=== PATIENT | female | born 1970 | race Caucasian/White ===

== ENCOUNTER 2017-03-20 16:33 | Emergency (ER) | payer OTHER ==
[~2017-03-20] VITALS: Ht 160 cm; Wt 65.5 kg
[~2017-03-20 16:33] MED LIST: ACET325T33 PO; DICY10SY PO; HYDR-2458 PO; NITR-58 PO; ZOF8 PO
[2017-03-20 16:35] VITALS: Ht 160 cm; Wt 65.5 kg
[2017-03-20] MEDS ORDERED: ONDANSETRON (ODT) 4 MG TAB ODT STA (19:25)
[2017-03-20] MEDS ORDERED: HYDROCODONE/APAP (5/325) TAB PO ONE (19:30)
[2017-03-20 19:45] LABS: ADD SCAN DIFF NO
[2017-03-20 19:47] LABS: BASOPHILS % 0.2 % (0.0-2.0); HEMATOCRIT 35.8 % (37.0-47.0); HEMOGLOBIN 12.4 g/dl (12.0-16.0); LYMPHOCYTES # 0.6 10^3/ul (0.8-2.9); LYMPHOCYTES % 9.9 % (15.0-51.0); MEAN CORPUSCULAR HEMOGLOBIN 30.8 pg (29.0-33.0); MEAN CORPUSCULAR HGB CONC 34.6 g/dl (32.0-37.0); MEAN CORPUSCULAR VOLUME 88.8 fl (82.0-101.0); MEAN PLATELET VOLUME 9.1 fl (7.4-10.4); MONOCYTE # 0.2 10^3/ul (0.3-0.9); NEUTROPHIL # 5.4 10^3/ul (1.6-7.5); NEUTROPHILS % 86.6 % (39.0-77.0); PLATELET COUNT 216 10^3/UL (140-415); RED BLOOD COUNT 4.03 10^6/ul (4.20-5.40); RED CELL DISTRIBUTION WIDTH 12.2 % (11.5-14.5); WHITE BLOOD COUNT 6.3 10^3/ul (4.8-10.8)
[2017-03-20 19:52] LABS: ADD UMIC YES; URINE BILIRUBIN (Dip) NEGATIVE (NEGATIVE); URINE BLOOD (Dip) TRACE (NEGATIVE); URINE COLOR YELLOW (YELLOW); URINE GLUCOSE (Dip) NEGATIVE (NEGATIVE); URINE KETONES (Dip) 40 (NEGATIVE); URINE LEUKOCYTE ESTERASE (Dip) NEGATIVE (NEGATIVE); URINE NITRITE (Dip) NEGATIVE (NEGATIVE); URINE TOTAL PROTEIN (Dip) NEGATIVE (NEGATIVE); URINE UROBILINOGEN (Dip) 0.2 E.U./dL (0.1-1.0)
[2017-03-20 20:04] LABS: ALBUMIN 4.8 g/dl (3.3-4.9); ALBUMIN/GLOBULIN RATIO 1.23; BILIRUBIN,INDIRECT 0.7 mg/dl (0-1.1); BILIRUBIN,TOTAL 0.7 mg/dl (0.2-1.3); CALCIUM 8.9 mg/dl (8.4-10.2); CREATININE 0.62 mg/dl (0.44-1.00); POTASSIUM 3.5 mmol/L (3.5-5.1); TOTAL PROTEIN 8.7 g/dl (6.1-8.1)
[2017-03-20 20:15] LABS: BACTERIA,URINE FEW; SQUAMOUS EPITHELIAL CELL,UR FEW
[2017-03-20] MEDS ORDERED: HYDR-906 PO (20:21)
[2017-03-20] MEDS ORDERED: DOCU-144 PO (20:21)
[2017-03-20] MEDS ORDERED: ONDA4TAB8 PO (20:21)
[2017-03-20] MEDS ORDERED: FAMO-18 PO (20:22)
--- NOTE | 2017-03-20 20:26 | ERD ---
ER Documentation Chief Complaint Date/Time DATE: 03/20/17 TIME: 20:23 Chief Complaint AP SINCE LAST NIGHT WITH NAUSEA HPI This 46-year-old female who presents to the emergency department today complaining of abdominal pain since last night. States she has had some nausea and one bout of vomiting. States she has a history of gastritis. States he has not taken any medication for the pain. Denies any dysuria, fevers or chills. ROS All systems reviewed and are negative except as per history of present illness. Medications Home Meds Active Scripts Famotidine* (Pepcid*) 20 Mg Tablet, 20 MG PO BID for 10 Days, TAB Prov:YANIRA ASHBY PA-C 03/20/17 Docusate Sodium* (Colace*) 100 Mg Capsule, 100 MG PO TID, #30 CAP Prov:YANIRA ASHBY PA-C 03/20/17 Ondansetron Hcl* (Zofran*) 4 Mg Tablet, 4 MG PO Q6H for NAUSEA AND/OR VOMITING, #30 TAB Prov:YANIRA ASHBY PA-C 03/20/17 Hydrocodone/Acetaminophen (Aurora 5-325 Tablet) 1 Each Tablet, 1 TAB PO Q6H Y for PAIN, #12 TAB Prov:YANIRA ASHBY PA-C 03/20/17 Acetaminophen* (Tylenol*) 325 Mg Tablet, 2 TAB PO Q8 Y for PAIN AND OR ELEVATED TEMP, #20 TAB Prov:GARY AYALA PA-C 10/31/15 Nitrofurantoin Monohyd Macrocr* (Macrobid*) 100 Mg Capsr, 100 MG PO BID for 7 Days, CAP Prov:GARY AYALA PA-C 10/31/15 Reported Medications Ondansetron Hcl* (Zofran* ODT) 8 Mg/Tab Tab.rapdis, 8 MG PO 07/31/13 Dicyclomine Hcl (Dicyclomine Hcl) 10 Mg/5 Ml Syrup, 10 MG PO, #2 07/31/13 Hydrocodone Bit-Acetaminophen (Hydrocodone Bit-Acetaminophen) 1 Each Tablet, 1 EACH PO 07/31/13 Allergies Allergies: Coded Allergies: No Known Allergy (Unverified , 07/21/13) PMhx/Soc History of Surgery: Yes (C SECTION) Anesthesia Reaction: No Hx Neurological Disorder: No Hx Respiratory Disorders: No Hx Cardiac Disorders: No Hx Psychiatric Problems: No Hx Miscellaneous Medical Probl: Yes (GASTRITIS, HERNIA) Hx Alcohol Use: No Hx Substance Use: No Hx Tobacco Use: No Smoking Status: Never smoker Physical Exam Vitals Vital Signs Date Time Temp Pulse Resp B/P Pulse Ox O2 Delivery O2 Flow Rate FiO2 03/20/17 16:35 99.2 110 20 122/61 99 Physical Exam Const: No acute distress Head: Atraumatic Eyes: Normal Conjunctiva ENT: Normal External Ears, Nose and Mouth. Neck: Full range of motion..~ No meningismus. Resp: Clear to auscultation bilaterally Cardio: Regular rate and rhythm, no murmurs Abd: Soft, periumbilical tenderness, non distended. Normal bowel sounds. No right lower quadrant pain. No tenderness McBurney's. No pelvic pain. Skin: No petechiae or rashes Neur: Awake and alert Psych: Normal Mood and Affect Result Diagram: 03/20/17193103/20/171931 Results 24 hrs Laboratory Tests Test 03/20/17 19:27 03/20/17 19:32 Urine Color YELLOW Urine Clarity CLEAR Urine pH 5.5 Urine Specific [place] >=1.030 Urine Ketones 40 Urine Nitrite NEGATIVE Urine Bilirubin NEGATIVE Urine Urobilinogen 0.2 E.U./dL Urine Leukocyte Esterase NEGATIVE Urine Microscopic RBC 2-5/HPF Urine Microscopic WBC 0-2/HPF Urine Squamous Epithelial Cells FEW Urine Bacteria FEW Urine Hemoglobin TRACE Urine Glucose NEGATIVE% Urine Total Protein NEGATIVE White Blood Count 6.310^3/ul Red Blood Count 4.0310^6/ul Hemoglobin 12.4g/dl Hematocrit 35.8% Mean Corpuscular Volume 88.8fl Mean Corpuscular Hemoglobin 30.8pg Mean Corpuscular Hemoglobin Concent 34.6g/dl Red Cell Distribution Width 12.2% Platelet Count 67019^3/UL Mean Platelet Volume 9.1fl Neutrophils % 86.6% Lymphocytes % 9.9% Monocytes % 3.0% Eosinophils % 0.0% Basophils % 0.2% Nucleated Red Blood Cells % 0.0/100WBC Neutrophils # 5.410^3/ul Lymphocytes # 0.610^3/ul Monocytes # 0.210^3/ul Eosinophils # 0.010^3/ul Basophils # 0.010^3/ul Nucleated Red Blood Cells # 0.010^3/ul Sodium Level 137mmol/L Potassium Level 3.5mmol/L Chloride Level 104mmol/L Carbon Dioxide Level 23mmol/L Anion Gap 14 Blood Urea Nitrogen 11mg/dl Creatinine 0.62mg/dl Glucose Level 104mg/dl Calcium Level 8.9mg/dl Total Bilirubin 0.7mg/dl Direct Bilirubin 0.00mg/dl Indirect Bilirubin 0.7mg/dl Aspartate Amino Transf (AST/SGOT) 33IU/L Alanine Aminotransferase (ALT/SGPT) 35IU/L Alkaline Phosphatase 78IU/L Total Protein 8.7g/dl Albumin 4.8g/dl Globulin 3.90g/dl Albumin/Globulin Ratio 1.23 Lipase 52U/L Current Medications Medications (Trade) Dose Ordered Sig/Ev Route PRN Reason Start Time Stop Time Status Last Admin Dose Admin Acetaminophen/ Hydrocodone Bitart (Aurora (5/325)) 1 tab ONCE ONCE PO 03/20/17 19:30 03/20/17 19:31 DC 03/20/17 19:42 Ondansetron HCl (Zofran Odt) 4 mg ONCE STAT ODT 03/20/17 19:25 03/20/17 19:27 DC 03/20/17 19:42 Procedures/MDM This 46-year-old female presents to the emergency department today complaining of abdominal pain that started last night. On physical exam patient only had periumbilical tenderness. She had no tenderness in her right lower quadrant. No tenderness at McBurney's. She had no pelvic pain. I did obtain laboratory work as well as a UA Laboratory work shows no elevated blood cell count. She is not anemic. Platelets are within normal limits. Electrolytes are within normal limits. Glucose is within normal limits. Liver functions within normal limits. Lipase within normal limits. UA is negative for infection test is negative She was given Aurora and Zofran here in the emergency department and stated that symptoms dramatically improved. Patient has abdominal pain of uncertain etiology however she does have a history of gastritis and it may be related to this. Patient has no right lower quadrant pain and no tenderness McBurney's. Low suspicion for acute surgical abdomen at this time. I do not feel the patient requires a CT scan or imaging at this time. Patient has no pelvic pain and have low suspicion for ectopic , delivering abscess, ovarian torsion. She was given a prescription for Aurora, Colace, Pepcid and Zofran for home At this time the patient is stable for discharge and outpatient management. Patient should follow up with their PCP in the next 1-2 days. They may return to the emergency department sooner for any persistent or worsening of symptoms. Patient understood and agreed with the plan. Departure Diagnosis: Primary Impression: Abdominal pain Abdominal location: periumbilical Qualified Code: R10.33 - Periumbilical abdominal pain Condition: Fair Patient Instructions: Abdominal Pain Referrals: your PCP Additional Instructions: Llame al doctor MAANA y dale cat GISELE PARA DENTRO DE 1-2 ENRIQUEZ.Dgale a la secretaria que nosotros le instruimos hacer esta gisele.Avise o llame si adhikari condicin se empeora antes de la gisele. Regresa aqui si peor o no mejor. Take Aurora for severe pain otherwise take Tylenol Take Colace if you have any constipation from pain medication Take Zofran for nausea or vomiting Take Pepcid as prescribed for your gastritis YANIRA ASHBY PA-C March 20, 2017 20:26
[2017-03-20 20:28] VITALS: BP 103/60; PULSE 95; RESP 17; TEMP 98.9
== END 2017-03-20 20:29 | disposition home or self-care (01) ==
LOC: FTE 16:33
DX: R10.33 Periumbilical pain (principal); R10.2 Pelvic and perineal pain
CPT/HCPCS: 36415; 80053; 81001; 81003; 83690; 85025; 99284